=== PATIENT | male | born 1960 | race Caucasian/White ===

== ENCOUNTER → 2025-07-09 09:13 | Outpatient (REF) | payer OTHER, SELFPAY | LOC: RAD 09:13 | PROVIDERS: ATTENDING PHYSICIAN Physician Assistant | DX: M79.671 Pain in right foot (principal) | CPT/HCPCS: 73630 ==

== ENCOUNTER 2025-07-10 08:30 | Emergency (ER) | payer OTHER, SELFPAY ==
[2025-07-10 08:34] VITALS: BP 130/96
--- NOTE | 2025-07-10 09:24 | ED.GENMED ---
History of Present Illness
General
Chief Complaint: Skin Problem
Source: patient
Exam Limitations: none
Time Seen by Provider: 07/10/25 08:57
Nursing documentation reviewed up to this point in time: agreed with
History of Present Illness
History of Present Illness:
64-year-old male with no reported chronic medical issues presents for evaluation of right foot pain. Patient reports that about a week ago he noticed a painful bump on the plantar surface of his right foot essentially at the base of the 2nd/3rd
toe. He says that it is painful to walk on it and he feels that is getting worse and he noticed a small bluish dot in the middle of it today which prompted him to come to the ER. He did see his primary doctor and had an outpatient x-ray done
yesterday but does not yet have the results of this. He denies any trauma or injury although he does report that he has recently been wearing new work boots with a very thin sole. He denies similar issues in the past. No fevers or chills. He is
not diabetic.
Review of Systems
Review of Systems
All Other Systems: ROS reviewed and negative except as documented in HPI and ROS
Skin: Reports other (Painful bump on the right foot)
Phy Exam
Physical Exam
Physical Exam:
General: Well appearing and non-toxic
HEENT: protecting airway
Neck: appears supple
CV: No evidence of cyanosis
Resp: No accessory muscle use
Abd: Non-distended
Extremities: No deformities; on exam of the right foot he has tenderness in the plantar surface at the base of the 2nd and 3rd toe; the area is slightly erythematous there is a small central nodule and the skin is callused in this area; it is not
fluctuant, no crepitus; small amount of purpleish discoloration central portion
Neuro: Alert
Psych: Normal affect
Skin: Intact
Scores
Heart Failure Risk
Heart Failure Risk Score: Not Applicable
Heart Score for Chest Pain Patients
STEMI patient?: Not applicable
Withdrawal Assessment of Alcohol
Withdrawal Assessment Completed?: Not applicable
Course
Vital Signs
Initial and Last Documented VS:
Initial Vital Signs
Temp Pulse Resp BP Pulse Ox
37.2 C 97 16 130/96 97
07/10/25 08:34 07/10/25 08:34 07/10/25 08:34 07/10/25 08:34 07/10/25 08:34
Last Documented Vital Signs
Temp Pulse Resp BP Pulse Ox
37.2 C 97 16 130/96 97
07/10/25 08:34 07/10/25 08:34 07/10/25 08:34 07/10/25 08:34 07/10/25 08:34
MDM/Problems Addressed
Differential Diagnosis Includes:
[place]/callus, fracture, cellulitis/infection/abscess
MDM/Problems Addressed:
64-year-old male presents for evaluation of pain on the right foot�he has noticed a painful bump on the plantar surface at the base of the 2nd and 3rd toes. He feels that is getting a bit worse and so he came to the ER. He did have an outpatient
x-ray done yesterday which I was able to review�on my review it shows no acute abnormalities. Physical exam is as noted. The area really appears most consistent with a corn with callused skin with a small central nodule however there is some
slight erythema of the overlying skin. No wounds or breaks in the skin. I did perform a [id number] ultrasound of the area and there was no abscess or foreign body. He did recently start wearing new work boots and overall I suspect that this is
likely a corn however given the erythema in the area we will give him a short course of antibiotics as well in case this is an early cellulitis. Referred to podiatry for follow-up. Patient comfortable with this plan. All questions answered.
*Radiology
Radiology exam reviewed: radiology read reviewed
*Pulse Oximetry
SaO2: 97
Oxygen Mode of Delivery: Room air
Patient hypoxic: no (97%)
*Critical Care Note
Total Time (30-74mins, 75-104mins- exclusive of procedures): Not Applicable
Data Reviewed
Source: patient
ED Attending Note
-
Portions of this chart may have been created with voice recognition software.� Occasional wrong word or��sound alike� substitutions may have occurred due to the inherent limitations of voice recognition software.
Discharge Plan
Departure
Patient Disposition: Home (Routine Discharge)
Date of Disposition: 07/10/25
Time of Disposition: 09:29
Patient with high blood pressure during this ER visit?: No
Discharge Problem:
Foot pain, right
Instructions: Corns and calluses
Prescriptions:
New
cephalexin 500 mg capsule
500 mg PO QID 7 Days Qty: 28 0RF
Referrals:
Biju Esposito MD [Active, Podiatry] - Call in 1-3 days for appt
Malik Saenz DO [Family Provider, Internal Medicine]
Activity Restrictions/Additional Instructions:
Thank you for visiting the Emergency Department at [facility].
1. Please schedule a follow up appointment as directed. Call first thing tomorrow morning to make an appointment.
2. If indicated, please take your medications as instructed and indicated on discharge paperwork.
3. If any of your symptoms do not improve, or persist, or become more severe within 6-12 hours, please return to the emergency department for further care.
4. Please return to the emergency department if you develop a headache, neck pain/stiffness, fever greater than 100.4F, chest pain, shortness of breath, persistent nausea, vomiting, slurred speech, difficulty walking, numbness/tingling, weakness,
signs of infection or any other symptoms that are worrisome to you.
Please call [phone] if you have any questions.
Interventions
Interventions:
*Risk Screen - Suicide Last Done: 07/10/25 08:35
*Neglect/Abuse Screening Last Done: 07/10/25 08:35
Discharge Date and Time
Print Language: MEXICAN
== END 2025-07-10 09:42 | disposition home or self-care (01) ==
LOC: EMR 08:30
PROVIDERS: EMERGENCY PHYSICIAN Emergency Medicine; FAMILY PHYSICIAN Internal Medicine
DX: M25.571 Pain in right ankle and joints of right foot (principal)
CPT/HCPCS: 99282